=== PATIENT | female | born 1945 | race Caucasian/White ===

== ENCOUNTER 2018-12-18 07:33 | Day surgery (SDC) | payer OTHER ==
[2018-12-18] MEDS ORDERED: LIDOCAINE 1% 20 ML MDV ID ONE (07:55)
[2018-12-18 08:05] VITALS: TEMP 96.1
[2018-12-18] MEDS ORDERED: LIDOCAINE 1% 20 ML MDV ID STA (08:05)
[2018-12-18] MEDS ORDERED: DIPRIVAN 20 ML VIAL IVP ONE (10:00)
[2018-12-18 10:43] VITALS: BP 104/42
--- NOTE | 2018-12-19 11:07 | OP ---
INDICATIONS FOR PROCEDURE: 73 year old female presents for surveillance colonoscopy. She had a colonoscopy 3 1/2 years ago noting 5 polyps with adenomatous changes. She has diverticulosis. She presents for colonoscopy examination now. MEDICATIONS: SEE ANESTHESIA NOTES. PROCEDURE: COLONOSCOPY. SNARE POLYPECTOMY. REPORT: The risks, benefits, alternatives and limitations were discussed in detail with the patient. Informed consent was obtained. After adequate sedation was achieved, a digital rectal exam revealed good tone, no masses. The colonoscope was introduced into the rectum and advanced under direct visual guidance to the cecum. The cecum was identified by the appendiceal orifice and IC valve. I then slowly the scope in circumferential manner and examined the mucosa quite carefully. I looked on the proximal and distal sides of folds and flexures as best as possible. I was able to retroflex the scope in the right colon and the left colon to increase visualization. In the sigmoid there was multiple small diverticuli scattered throughout. At 15cm in the distal sigmoid area there is multilobulated pedunculated polyp. I removed this by snare technique. No polyp tissue was noted to be remaining after polypectomy. The polyp was retrieved and sent for pathology review. The remaining colon appeared unremarkable including on retroflex view of the anal canal. The prep was good. Withdraw time was 10 minutes and 44 seconds. The patient tolerated the procedure well with stable vital signs and pulse oximetry throughout. IMPRESSION: 1. Polyp removed from 15cm 2. Sigmoid diverticulosis RECOMMENDATIONS: 1. High fiber diet 2. Office visit as needed 3. Await polyp pathology results and if there is adenomatous changes I suggest a surveillance colonoscopy exam again in three years. Otherwise if there is hyperplastic changes colonoscopy examination again in 5 years or sooner if there is any signs or symptoms to indicate otherwise. CC: Dr. Con MAN
== END 2018-12-18 11:05 | disposition home or self-care (01) ==
LOC: SURG 07:33
PROVIDERS: ATTEND Internal Medicine Gastroenterology
DX: Z86.010 Personal history of colon polyps (principal); K57.90 Diverticulosis of intestine, part unspecified, without perforation or abscess without bleeding; D12.5 Benign neoplasm of sigmoid colon